=== PATIENT | male | born 1960 | race African-American/Black ===

== ENCOUNTER 2022-07-01 15:56 | Inpatient (IN) | payer OTHER ==
[2022-07-01 16:00] VITALS: RESP 16; BMI 20.5
[2022-07-01] MEDS ORDERED: NICOTINE POLACRILEX 2 MG GUM BC PRN (16:18)
[2022-07-01] MEDS ORDERED: MAG HYDROX/AL HYDROX/SIMETH 30 ML UNIT-DOSE CUP PO PRN (16:18)
[2022-07-01] MEDS ORDERED: LOPERAMIDE HCL 2 MG CAPSULE PO PRN (16:18)
[2022-07-01] MEDS ORDERED: NICOTINE 10 MG CARTRIDGE (INHALER) IH PRN (16:18)
[2022-07-01] MEDS ORDERED: guaiFENesin 200 MG/10 ML 10 ML UNIT-DOSE CUPS PO PRN (16:18)
[2022-07-01] MEDS ORDERED: hydrOXYzine PAMOATE 25 MG CAPSULE (FP) PO PRN (16:18)
[2022-07-01] MEDS ORDERED: P-EPHED 60MG/TRIPROLIDI 2.5MG TABLET PO PRN (16:18)
[2022-07-01] MEDS ORDERED: ACETAMINOPHEN 325 MG TABLET (FP) PO PRN (16:18)
[2022-07-01] MEDS ORDERED: IBUPROFEN 400 MG TABLET (FP) PO PRN (16:18)
[2022-07-01] MEDS ORDERED: MAGNESIUM HYDROX 2400MG/30ML ORAL SUSPENSION 30 ML CUP PO PRN (16:18)
[2022-07-01] MEDS ORDERED: POLYETHYLENE GLYCOL (HEALTHYLAX) 3350 17 GM PACKET PO PRN (16:18)
[2022-07-01] MEDS ORDERED: BENZOCAINE/MENTHOL (CHLORASEPTIC ) LOZENGE MM PRN (16:18)
[2022-07-01] MEDS ORDERED: PRENATAL VITAMINS W/ FOLIC ACID TABLET (FP) PO SCH (16:30)
[2022-07-01 21:29] VITALS: PULSE 26; TEMP 97.8
[2022-07-01 21:30] VITALS: BP 136/72
[2022-07-01] MEDS ORDERED: NALOXONE (NARCAN) HCL 4 MG/0.1 ML SPRAY NS ONE (21:42)
[2022-07-01] MEDS ORDERED: THIAMINE HCL 100 MG TABLET (FP) PO SCH (22:00)
[2022-07-01] MEDS ORDERED: MELATONIN 5 MG TABLETS PO SCH (22:00)
== END 2022-07-02 06:40 | disposition short-term general hospital (02) | DRG 772 ==
LOC: YASAS 15:56 → Y3W 20:34
PROVIDERS: ADMIT Allergy & Immunology; ATTEND Psychiatry & Neurology Pain Medicine
PROC: HZ42ZZZ Group Counseling for Substance Abuse Treatment, Cognitive-Behavioral (ICD-10-PCS; principal; 2022-07-01)
DX: F11.20 Opioid dependence, uncomplicated (principal); F14.20 Cocaine dependence, uncomplicated; F12.20 Cannabis dependence, uncomplicated; F17.210 Nicotine dependence, cigarettes, uncomplicated; F41.8 Other specified anxiety disorders; I10 Essential (primary) hypertension; J45.909 Unspecified asthma, uncomplicated; R00.1 Bradycardia, unspecified; R60.0 Localized edema
CPT/HCPCS: C9803-CS; U0003; U0005

== ENCOUNTER 2022-07-01 22:18 | Observation (INO) | payer OTHER ==
[2022-07-01 22:26] VITALS: BMI 23.0
[2022-07-02 01:22] LABS: BASO % 0.7 % (0-2.0); EOS % 4.6 % (0-4.5); HEMATOCRIT 32.8 % (35.4-49); HEMOGLOBIN 10.8 GM/dL (11.7-16.9); LYMPH % 22.5 % (8-40); MCH 30.6 pg (25.7-33.7); MCHC 32.8 g/dl (32.0-35.9); MEAN CELL VOLUME 93.2 fl (80-96); MEAN PLT VOLUME 6.9 fl (7.5-11.1); MONO % 16.4 % (3.8-10.2); NEUT % 55.8 % (42.8-82.8); PLATELET COUNT 408 10^3/uL (134-434); RBC 3.52 M/mm3 (4.00-5.60); RDW 15.6 % (11.9-15.9); WHITE BLOOD COUNT 7.5 K/mm3 (4.0-10.0)
[2022-07-02 01:44] LABS: CHLORIDE 106 mmol/L (98-107); SODIUM 144 mmol/L (136-145)
[2022-07-02 01:46] LABS: ALBUMIN 1.6 g/dl (3.4-5.0); ANION GAP 6 MMOL/L (8-16); BLOOD UREA NITROGEN 13.4 mg/dL (7-18); CALCIUM 8.2 mg/dL (8.5-10.1); CO2 32 mmol/L (21-32); GLUCOSE,RANDOM 86 mg/dL (74-106)
[2022-07-02 01:49] LABS: CREATININE 0.8 mg/dL (0.55-1.3); SGPT/ALT 17 U/L (13-61)
[2022-07-02 01:50] LABS: SGOT/AST 16 U/L (15-37)
[2022-07-02 01:51] LABS: BILIRUBIN,TOTAL 0.2 mg/dL (0.2-1); TOT PROT 6.4 g/dl (6.4-8.2)
[2022-07-02 01:52] LABS: ALK PHOS 134 U/L (45-117)
[2022-07-02] MEDS ORDERED: ONDANSETRON 4 MG/2 ML VIAL IVPUSH PRN (03:34)
[2022-07-02] MEDS ORDERED: ALBUTEROL SO4 HFA INHALER IH PRN (05:30)
[2022-07-02 08:36] LABS: PH,URINE 7.5 (5.0-8.0); URINE APPEARANCE CLEAR; URINE BILIRUBIN NEGATIVE (NEGATIVE); URINE COLOR YELLOW; URINE GLUCOSE (UA) NEGATIVE (NEGATIVE); URINE KETONE NEGATIVE (NEGATIVE); URINE LEUK ESTERASE NEGATIVE (NEGATIVE); URINE NITRITE NEGATIVE (NEGATIVE); URINE PROTEIN NEGATIVE (NEGATIVE)
[2022-07-02] MEDS ORDERED: FOLIC ACID INJECTION - 1 MG, THIAMINE HCL 100 MG, MULTIVIT INJECTION ADULT 10 ML in SOD... IVPB ONE (10:00)
[2022-07-02] MEDS ORDERED: ONDANSETRON 4 MG/2 ML VIAL ONE (10:08)
[2022-07-02] MEDS ORDERED: ACETAMINOPHEN 325 MG TABLET (FP) ONE (10:08)
[2022-07-02] MEDS ORDERED: HEPARIN NA (PORCINE) 5,000 UNITS/ML 1ML VIAL ONE (10:08)
[2022-07-02] MEDS: ACETAMINOPHEN 325 MG TABLET (FP) PO PRN (10:22)
[2022-07-02 10:42] LABS: INR 1.14 (0.83-1.09); PROTHROMBIN TIME (PATIENT) 13.1 SEC (9.7-13.0)
[2022-07-02 10:44] LABS: ACTIVATED PTT 25.8 SECONDS (25.2-36.5)
[2022-07-02 11:03] LABS: N-TERMINAL BNP 1897.3 pg/ml (5-125)
[2022-07-02] MEDS: HEPARIN NA (PORCINE) 5,000 UNITS/ML 1ML VIAL SQ SCH ×2 (13:25→23:53)
[2022-07-02] MEDS ORDERED: methaDONE HCL 10 MG TABLET PO SCH (18:07)
[2022-07-02] MEDS ORDERED: methaDONE HCL 40 MG DISPERSABLE TABLET ONE (18:18)
[2022-07-02] MEDS ORDERED: methaDONE HCL 10 MG TABLET ONE (18:18)
[2022-07-03] MEDS: HEPARIN NA (PORCINE) 5,000 UNITS/ML 1ML VIAL SQ SCH ×2 (06:25→14:20)
[2022-07-03] MEDS: ACETAMINOPHEN 325 MG TABLET (FP) PO PRN (06:25)
[2022-07-03 07:25] LABS: BASO % 0.7 % (0-2.0); HEMATOCRIT 35.3 % (35.4-49); HEMOGLOBIN 11.1 GM/dL (11.7-16.9); LYMPH % 33.1 % (8-40); MCH 29.9 pg (25.7-33.7); MCHC 31.6 g/dl (32.0-35.9); MEAN CELL VOLUME 94.7 fl (80-96); MEAN PLT VOLUME 7.1 fl (7.5-11.1); MONO % 15.6 % (3.8-10.2); NEUT % 47.6 % (42.8-82.8); PLATELET COUNT 421 10^3/uL (134-434); RBC 3.72 M/mm3 (4.00-5.60); RDW 15.8 % (11.9-15.9)
[2022-07-03 07:41] LABS: CALCIUM 8.1 mg/dL (8.5-10.1)
[2022-07-03 07:42] LABS: BLOOD UREA NITROGEN 11.1 mg/dL (7-18)
[2022-07-03 07:45] LABS: CREATININE 0.8 mg/dL (0.55-1.3); PHOSPHOROUS 3.3 mg/dL (2.5-4.9)
[2022-07-03 16:27] VITALS: BP 122/65; PULSE 80; RESP 20; TEMP 98.9
== END 2022-07-03 16:20 | disposition other institution (70) ==
LOC: JER 22:18 → JERBED 07-02 02:36 → J2W 07-02 21:54
PROVIDERS: ADMIT Internal Medicine; ATTEND Nurse Practitioner Acute Care
PROC: 3E033GC Introduction of Other Therapeutic Substance into Peripheral Vein, Percutaneous Approach (ICD-10-PCS; principal; 2022-07-02)
PROC: 3E023GC Introduction of Other Therapeutic Substance into Muscle, Percutaneous Approach (ICD-10-PCS; 2022-07-02)
DX: R94.31 Abnormal electrocardiogram [ECG] [EKG] (principal); R41.82 Altered mental status, unspecified; F14.10 Cocaine abuse, uncomplicated; F41.9 Anxiety disorder, unspecified; R60.0 Localized edema; I10 Essential (primary) hypertension; F17.210 Nicotine dependence, cigarettes, uncomplicated; Z29.8 Encounter for other specified prophylactic measures
CPT/HCPCS: 0241U-QW; 36415; 70450-TC; 71045-TC-FY; 80048; 80053; 80307; 81003; 83735; 83880; 84100; 84484; 85025; 85610; 85730; 87086; 93005; 93010; 96365; 96372; 96375; 99285-25; G0378; J1644

== ENCOUNTER 2022-07-03 18:20 | Inpatient (IN) | payer OTHER ==
[2022-07-03 20:50] VITALS: BMI 21.2
[2022-07-03] MEDS ORDERED: ALBUTEROL SO4 HFA INHALER IH PRN (22:18)
[2022-07-03] MEDS ORDERED: P-EPHED 60MG/TRIPROLIDI 2.5MG TABLET PO PRN (22:34)
[2022-07-03] MEDS ORDERED: IBUPROFEN 400 MG TABLET (FP) PO PRN (22:34)
[2022-07-03] MEDS ORDERED: POLYETHYLENE GLYCOL (HEALTHYLAX) 3350 17 GM PACKET PO PRN (22:34)
[2022-07-03] MEDS ORDERED: MAGNESIUM HYDROX 2400MG/30ML ORAL SUSPENSION 30 ML CUP PO PRN (22:34)
[2022-07-03] MEDS ORDERED: guaiFENesin 200 MG/10 ML 10 ML UNIT-DOSE CUPS PO PRN (22:34)
[2022-07-03] MEDS ORDERED: BENZOCAINE/MENTHOL (CHLORASEPTIC ) LOZENGE MM PRN (22:34)
[2022-07-04] MEDS ORDERED: methaDONE HCL 10 MG TABLET PO ONE (08:26)
[2022-07-04] MEDS: ASPIRIN COATED 81 MG TABLET.EC PO SCH (09:39)
[2022-07-04] MEDS: PRENATAL VITAMINS W/ FOLIC ACID TABLET (FP) PO SCH (09:39)
[2022-07-04] MEDS: THIAMINE HCL 100 MG TABLET (FP) PO SCH (22:08)
[2022-07-05] MEDS ORDERED: methaDONE HCL 40 MG DISPERSABLE TABLET PO SCH (06:00)
[2022-07-05] MEDS: ASPIRIN COATED 81 MG TABLET.EC PO SCH (10:13)
[2022-07-05] MEDS: PRENATAL VITAMINS W/ FOLIC ACID TABLET (FP) PO SCH (10:13)
[2022-07-05] MEDS: THIAMINE HCL 100 MG TABLET (FP) PO SCH (22:46)
[2022-07-06] MEDS: PRENATAL VITAMINS W/ FOLIC ACID TABLET (FP) PO SCH (09:19)
[2022-07-06] MEDS: ASPIRIN COATED 81 MG TABLET.EC PO SCH (09:19)
[2022-07-06] MEDS: THIAMINE HCL 100 MG TABLET (FP) PO SCH (22:10)
[2022-07-06] MEDS: ACETAMINOPHEN 325 MG TABLET (FP) PO PRN (22:15)
[2022-07-07] MEDS: ASPIRIN COATED 81 MG TABLET.EC PO SCH (10:34)
[2022-07-07] MEDS: PRENATAL VITAMINS W/ FOLIC ACID TABLET (FP) PO SCH (10:34)
[2022-07-07] MEDS: MAG HYDROX/AL HYDROX/SIMETH 30 ML UNIT-DOSE CUP PO PRN (11:26)
[2022-07-07] MEDS: THIAMINE HCL 100 MG TABLET (FP) PO SCH (22:03)
[2022-07-08] MEDS: ASPIRIN COATED 81 MG TABLET.EC PO SCH (10:01)
[2022-07-08] MEDS: PRENATAL VITAMINS W/ FOLIC ACID TABLET (FP) PO SCH (10:01)
[2022-07-08] MEDS: MAG HYDROX/AL HYDROX/SIMETH 30 ML UNIT-DOSE CUP PO PRN (20:53)
[2022-07-08] MEDS: THIAMINE HCL 100 MG TABLET (FP) PO SCH (21:42)
[2022-07-09] MEDS: MAG HYDROX/AL HYDROX/SIMETH 30 ML UNIT-DOSE CUP PO PRN (05:51)
[2022-07-09] MEDS: ASPIRIN COATED 81 MG TABLET.EC PO SCH (09:56)
[2022-07-09] MEDS: PRENATAL VITAMINS W/ FOLIC ACID TABLET (FP) PO SCH (09:56)
[2022-07-09] MEDS: ACETAMINOPHEN 325 MG TABLET (FP) PO PRN (09:59)
[2022-07-09] MEDS: THIAMINE HCL 100 MG TABLET (FP) PO SCH (21:41)
[2022-07-10] MEDS: MAG HYDROX/AL HYDROX/SIMETH 30 ML UNIT-DOSE CUP PO PRN (05:53)
[2022-07-10] MEDS: PRENATAL VITAMINS W/ FOLIC ACID TABLET (FP) PO SCH (10:00)
[2022-07-10] MEDS: ASPIRIN COATED 81 MG TABLET.EC PO SCH (10:00)
[2022-07-10] MEDS: ACETAMINOPHEN 325 MG TABLET (FP) PO PRN (10:01)
[2022-07-10] MEDS: THIAMINE HCL 100 MG TABLET (FP) PO SCH (22:06)
[2022-07-11] MEDS: MAG HYDROX/AL HYDROX/SIMETH 30 ML UNIT-DOSE CUP PO PRN ×2 (06:15→21:35)
[2022-07-11] MEDS: PRENATAL VITAMINS W/ FOLIC ACID TABLET (FP) PO SCH (09:39)
[2022-07-11] MEDS: ASPIRIN COATED 81 MG TABLET.EC PO SCH (09:39)
[2022-07-11] MEDS: ACETAMINOPHEN 325 MG TABLET (FP) PO PRN (09:39)
[2022-07-11] MEDS: THIAMINE HCL 100 MG TABLET (FP) PO SCH (21:34)
[2022-07-12] MEDS: MAG HYDROX/AL HYDROX/SIMETH 30 ML UNIT-DOSE CUP PO PRN (05:49)
[2022-07-12] MEDS: PRENATAL VITAMINS W/ FOLIC ACID TABLET (FP) PO SCH (09:39)
[2022-07-12] MEDS: FERROUS SO4 325 MG TABLET (FP) PO SCH (09:40)
[2022-07-12] MEDS: ASPIRIN COATED 81 MG TABLET.EC PO SCH (09:40)
[2022-07-12] MEDS: THIAMINE HCL 100 MG TABLET (FP) PO SCH (21:40)
[2022-07-13] MEDS: MAG HYDROX/AL HYDROX/SIMETH 30 ML UNIT-DOSE CUP PO PRN ×2 (05:34→14:19)
[2022-07-13] MEDS: PRENATAL VITAMINS W/ FOLIC ACID TABLET (FP) PO SCH (09:59)
[2022-07-13] MEDS: ASPIRIN COATED 81 MG TABLET.EC PO SCH (09:59)
[2022-07-13] MEDS: FERROUS SO4 325 MG TABLET (FP) PO SCH (09:59)
[2022-07-13] MEDS: THIAMINE HCL 100 MG TABLET (FP) PO SCH (22:00)
[2022-07-14] MEDS: MAG HYDROX/AL HYDROX/SIMETH 30 ML UNIT-DOSE CUP PO PRN (05:51)
[2022-07-14] MEDS: FERROUS SO4 325 MG TABLET (FP) PO SCH (09:04)
[2022-07-14] MEDS: PRENATAL VITAMINS W/ FOLIC ACID TABLET (FP) PO SCH (09:04)
[2022-07-14] MEDS: ASPIRIN COATED 81 MG TABLET.EC PO SCH (09:04)
[2022-07-14] MEDS: ACETAMINOPHEN 325 MG TABLET (FP) PO PRN (09:07)
[2022-07-14] MEDS: THIAMINE HCL 100 MG TABLET (FP) PO SCH (21:42)
[2022-07-15] MEDS: MAG HYDROX/AL HYDROX/SIMETH 30 ML UNIT-DOSE CUP PO PRN (05:46)
[2022-07-15] MEDS: PRENATAL VITAMINS W/ FOLIC ACID TABLET (FP) PO SCH (09:52)
[2022-07-15] MEDS: ASPIRIN COATED 81 MG TABLET.EC PO SCH (09:52)
[2022-07-15] MEDS: FERROUS SO4 325 MG TABLET (FP) PO SCH (09:52)
[2022-07-15 10:57] LABS: BASO % 0.9 % (0-2.0); EOS % 3.2 % (0-4.5); HEMATOCRIT 35.7 % (35.4-49); HEMOGLOBIN 11.1 GM/dL (11.7-16.9); LYMPH % 28.7 % (8-40); MCH 29.3 pg (25.7-33.7); MCHC 31.1 g/dl (32.0-35.9); MEAN CELL VOLUME 94.2 fl (80-96); MEAN PLT VOLUME 7.1 fl (7.5-11.1); MONO % 13.6 % (3.8-10.2); NEUT % 53.6 % (42.8-82.8); PLATELET COUNT 533 10^3/uL (134-434); RBC 3.79 M/mm3 (4.00-5.60); RDW 15.7 % (11.9-15.9); WHITE BLOOD COUNT 8.6 K/mm3 (4.0-10.0)
[2022-07-15 12:05] LABS: ALBUMIN 2.1 g/dl (3.4-5.0); BILIRUBIN,TOTAL 0.3 mg/dL (0.2-1); BLOOD UREA NITROGEN 16.9 mg/dL (7-18); CALCIUM 8.5 mg/dL (8.5-10.1); CREATININE 0.8 mg/dL (0.55-1.3); TOT PROT 7.7 g/dl (6.4-8.2)
[2022-07-15] MEDS: THIAMINE HCL 100 MG TABLET (FP) PO SCH (21:23)
[2022-07-16] MEDS: MAG HYDROX/AL HYDROX/SIMETH 30 ML UNIT-DOSE CUP PO PRN ×2 (06:07→15:42)
[2022-07-16] MEDS: FERROUS SO4 325 MG TABLET (FP) PO SCH (09:34)
[2022-07-16] MEDS: PRENATAL VITAMINS W/ FOLIC ACID TABLET (FP) PO SCH (09:35)
[2022-07-16] MEDS: ASPIRIN COATED 81 MG TABLET.EC PO SCH (09:35)
[2022-07-16] MEDS: THIAMINE HCL 100 MG TABLET (FP) PO SCH (21:15)
[2022-07-17] MEDS: MAG HYDROX/AL HYDROX/SIMETH 30 ML UNIT-DOSE CUP PO PRN (05:56)
[2022-07-17 06:38] VITALS: RESP 18
[2022-07-17] MEDS: PRENATAL VITAMINS W/ FOLIC ACID TABLET (FP) PO SCH (09:37)
[2022-07-17] MEDS: ASPIRIN COATED 81 MG TABLET.EC PO SCH (09:37)
[2022-07-17] MEDS: FERROUS SO4 325 MG TABLET (FP) PO SCH (09:37)
[2022-07-17] MEDS: THIAMINE HCL 100 MG TABLET (FP) PO SCH (21:26)
[2022-07-18] MEDS: PANTOPRAZOLE 40 MG TABLET PO SCH (06:03)
[2022-07-18] MEDS: PRENATAL VITAMINS W/ FOLIC ACID TABLET (FP) PO SCH (09:31)
[2022-07-18] MEDS: FERROUS SO4 325 MG TABLET (FP) PO SCH (09:31)
[2022-07-18] MEDS: ASPIRIN COATED 81 MG TABLET.EC PO SCH (09:31)
[2022-07-18] MEDS: busPIRone HCL 10 MG TABLET (FP) PO SCH (21:21)
[2022-07-18] MEDS: THIAMINE HCL 100 MG TABLET (FP) PO SCH (21:21)
[2022-07-19 07:11] VITALS: BP 110/62; PULSE 74; TEMP 98.6
[2022-07-19] MEDS: PANTOPRAZOLE 40 MG TABLET PO SCH (07:26)
[2022-07-19] MEDS ORDERED: ESCITALOPRAM OXALATE 10 MG TABLET ONE (08:45)
[2022-07-19] MEDS: FERROUS SO4 325 MG TABLET (FP) PO SCH (09:31)
[2022-07-19] MEDS: ASPIRIN COATED 81 MG TABLET.EC PO SCH (09:31)
[2022-07-19] MEDS: busPIRone HCL 10 MG TABLET (FP) PO SCH (09:31)
[2022-07-19] MEDS: PRENATAL VITAMINS W/ FOLIC ACID TABLET (FP) PO SCH (09:31)
[2022-07-19] MEDS ORDERED: ESCITALOPRAM OXALATE 20 MG TABLET PO SCH (10:00)
== END 2022-07-19 09:46 | disposition home or self-care (01) | DRG 772 ==
LOC: YASAS 18:20 → Y3E 07-04 00:01 → Y3W 07-04 11:45
PROVIDERS: ADMIT Allergy & Immunology; ATTEND Surgery
PROC: HZ42ZZZ Group Counseling for Substance Abuse Treatment, Cognitive-Behavioral (ICD-10-PCS; principal; 2022-07-04)
DX: F11.20 Opioid dependence, uncomplicated (principal); F14.20 Cocaine dependence, uncomplicated; F12.20 Cannabis dependence, uncomplicated; F17.210 Nicotine dependence, cigarettes, uncomplicated; F19.282 Other psychoactive substance dependence with psychoactive substance-induced sleep disorder; F41.8 Other specified anxiety disorders; I10 Essential (primary) hypertension; J45.909 Unspecified asthma, uncomplicated; K21.9 Gastro-esophageal reflux disease without esophagitis; L97.821 Non-pressure chronic ulcer of other part of left lower leg limited to breakdown of skin; R60.0 Localized edema; R00.1 Bradycardia, unspecified; R94.31 Abnormal electrocardiogram [ECG] [EKG]
CPT/HCPCS: 36415; 71045-TC-FY; 80053; 85025; C9803-CS; U0003; U0005